=== PATIENT | male | born 1985 | race African-American/Black ===

== ENCOUNTER 2022-05-11 19:42 | Observation (INO) | payer OTHER ==
[~2022-05-11] VITALS: Ht 188 cm; Wt 91.2 kg
[2022-05-11] MEDS ORDERED: IBUPROFEN 600 MG TABLET PO ONE (22:30)
[2022-05-11 22:42] LABS: BASOPHILS % (AUTO) 0.5 % (0.0-5.0); HEMATOCRIT 40.9 % (42-54); LYMPHOCYTES % (AUTO) 33.6 % (21.0-51.0); MEAN CORPUSCULAR HEMOGLOBIN 27.8 pg (27.0-33.0); MEAN CORPUSCULAR HGB CONC 32.5 g/dL (32.0-36.0); MEAN CORPUSCULAR VOLUME 85.6 fL (79-99); MONOCYTES % (AUTO) 5.5 % (3.0-13.0); NEUTROPHILS % (AUTO) 56.2 % (40.0-77.0); PLATELET COUNT (AUTO) 266 K/uL (130-400); RED BLOOD CELL COUNT(AUTO) 4.78 MIL/uL (4.50-6.20); RED CELL DISTRIBUTION WIDTH 12.7 % (11.0-15.5); WHITE BLOOD COUNT (AUTO) 12.8 K/uL (4.8-10.8)
[2022-05-11 22:51] LABS: POTASSIUM 3.4 mmol/L (3.5-5.1)
[2022-05-11 22:58] LABS: TOTAL PROTEIN, SERUM 7.8 g/dL (6.0-8.3)
[2022-05-12] MEDS ORDERED: 0.9%NACL 1000ML 1,000 ML IV ONE
[2022-05-12] MEDS ORDERED: LIDOCAINE HCL-MPF 1% 2ML VIAL IV PRN (03:00)
[2022-05-12] MEDS ORDERED: POTASSIUM CHLORIDE 10% ELIXIR 20 MEQ/15 ML UDCUP PO PRN (03:00)
[2022-05-12] MEDS ORDERED: ONDANSETRON 4MG INJ IV PRN (03:00)
[2022-05-12] MEDS ORDERED: POTASSIUM CHLORIDE 10MEQ/100ML 100 ML IV PRN (03:00)
[2022-05-12] MEDS ORDERED: ACETAMINOPHEN 325 MG TAB PO PRN ×2 (03:00)
[2022-05-12] MEDS ORDERED: KCL 20 MEQ ERTAB PO PRN (03:00)
[2022-05-12] MEDS ORDERED: LACTULOSE 20 GM/30 ML UDCUP PO PRN (03:00)
[2022-05-12 06:38] LABS: CREATININE 0.8 mg/dL (0.5-1.5); POTASSIUM 3.8 mmol/L (3.5-5.1); THYROID STIMULATING HORMONE 0.87 uIU/mL (0.36-3.74)
[2022-05-12 09:00] VITALS: BP 119/86
[2022-05-12] MEDS ORDERED: FAMOTIDINE 20MG TAB PO SCH (09:00)
[2022-05-12 09:41] LABS: AMPHET/METH SCREEN,URINE NEGATIVE (NEGATIVE); BARBITURATE SCREEN, URINE NEGATIVE (NEGATIVE); BENZODIAZEPINES SCREEN,URINE NEGATIVE (NEGATIVE); CANNABINOID SCREEN,URINE NEGATIVE (NEGATIVE); COCAINE SCREEN,URINE NEGATIVE (NEGATIVE); OPIATE SCREEN,URINE NEGATIVE (NEGATIVE); PHENCYCLIDINE SCREEN,URINE NEGATIVE (NEGATIVE)
== END 2022-05-12 11:30 | disposition home or self-care (01) ==
LOC: EDH 19:42 → INTOOBSV 05-12 02:52 → EDHIP 05-12 02:52 → 4DH 05-12 09:38
PROVIDERS: ADMIT Hospitalist; ATTEND Hospitalist
DX: R00.1 Bradycardia, unspecified (principal); M47.812 Spondylosis without myelopathy or radiculopathy, cervical region; R51.9 Headache, unspecified; E87.6 Hypokalemia; D72.829 Elevated white blood cell count, unspecified; M48.02 Spinal stenosis, cervical region; R55 Syncope and collapse; Z87.891 Personal history of nicotine dependence; V89.2XXA Person injured in unspecified motor-vehicle accident, traffic, initial encounter; Y92.410 Unspecified street and highway as the place of occurrence of the external cause; Y93.89 Activity, other specified; Y99.8 Other external cause status
CPT/HCPCS: 99285; 84484; 80053; 85025; 71045; 93005 ×2; 96360; 84443; 80048; 80305; 36415 ×2; 70450; 72125; 93306; 93356; G0378 ×8; J7030